=== PATIENT | female | born 1930 | race Caucasian/White ===

== ENCOUNTER 2016-11-04 10:02 | Emergency (ER) | payer OTHER, MEDICARE ==
[~2016-11-04] VITALS: Ht 157.5 cm; Wt 71.0 kg
[~2016-11-04 10:02] MED LIST: ASPI81TA82 PO; CELE200 PO; COQ1150C2 PO; FELO10TA PO; FORACAP INH; HYZA100T4 PO; METO25 PO; PROT40TA PO; RALO1TAB13 PO; VITA-13 PO; ZOCO40TA PO
[2016-11-04 10:12] VITALS: BP 160/86; PULSE 66; RESP 18; TEMP 98.3; O2SAT 94
[2016-11-04] MEDS ORDERED: SODIUM CHLORIDE 0.9% FLUSH 5 ML FLUSH IVF PRN (11:15)
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
[2016-11-04 11:50] LABS: AUTOMATED NEUTROPHIL # 3.8 TH/MM3 (1.8-7.7); BASOPHIL # 0.1 TH/MM3 (0-0.2); EOSINOPHIL # 0.2 TH/MM3 (0-0.4); EOSINOPHIL % 3.7 % (0.0-4.0); HEMATOCRIT 38.2 % (35.0-46.0); HEMO FLAGS DIFF FINAL; LYMPH % 27.9 % (9.0-44.0); LYMPHOCYTE # 1.9 TH/MM3 (1.0-4.8); MEAN CELL VOLUME 79.4 FL (80.0-100.0); MEAN CORPUSCULAR HEMOGLOBIN 26.6 PG (27.0-34.0); MEAN CORPUSCULAR HGB CONC 33.5 % (32.0-36.0); MONO % 9.3 % (0.0-8.0); NEUT % 58.1 % (16.0-70.0); PLATELET COUNT 259 TH/MM3 (150-450); RED BLOOD COUNT 4.81 MIL/MM3 (4.00-5.30); RED CELL DISTRIBUTION WIDTH 12.4 % (11.6-17.2); WHITE BLOOD COUNT 6.6 TH/MM3 (4.0-11.0)
[2016-11-04 11:52] LABS: BLOOD, URINE NEG (NEG); GLUCOSE,URINE NEG (NEG); KETONE, URINE NEG (NEG); NITRITE,URINE NEG (NEG); PH, URINE 5.5 (5.0-8.5)
[2016-11-04] MEDS ORDERED: ASPI-119 (11:53)
[2016-11-04] MEDS ORDERED: LOSA100T3 PO (11:53)
[2016-11-04] MEDS ORDERED: RANI150T PO (11:53)
[2016-11-04] MEDS ORDERED: CALC200S NASAL (11:53)
[2016-11-04] MEDS ORDERED: MULT-135 PO (11:53)
[2016-11-04] MEDS ORDERED: D31000CA (11:53)
[2016-11-04] MEDS ORDERED: CELE1CAP8 PO (11:53)
[2016-11-04] MEDS ORDERED: TRIA37.5 PO (11:53)
[2016-11-04] MEDS ORDERED: PANT40TA3 PO (11:53)
[2016-11-04] MEDS ORDERED: METO25TA3 PO (11:53)
[2016-11-04] MEDS ORDERED: SIMV10TA PO (11:53)
[2016-11-04] MEDS ORDERED: FELO10TA PO (11:53)
[2016-11-04] MEDS ORDERED: [UNRECOGNIZED DRUG - CODE] (11:53)
[2016-11-04 11:58] LABS: METHOD OF COLLECTION CLEAN CATCH; URINE COLOR YELLOW (YELLW/STRAW)
[2016-11-04 11:59] LABS: CHLORIDE 95 MEQ/L (98-107); POTASSIUM 4.5 MEQ/L (3.5-5.1); SODIUM (NA) 131 MEQ/L (136-145)
[2016-11-04 11:59] LABS: COMMENT (UR) CULT NOT INDICATED; CULTURE IF INDICATED CULT NOT INDICATED; SQUAMOUS EPITHELIAL CELL URINE 0-5 /hpf (0-5); WBC, URINE 0-2 /hpf (0-5)
[2016-11-04 12:03] LABS: ANION GAP 12 MEQ/L (5-15); APTT (PATIENT) 27.3 SEC (24.3-30.1); BICARBONATE 24.3 MEQ/L (21.0-32.0); BLOOD UREA NITROGEN 33 MG/DL (7-18); PROTHROMBIN TIME - PATIENT 10.6 SEC (9.8-11.6)
[2016-11-04 12:06] LABS: ALT (GPT) 25 U/L (10-53); AST (GOT) 5 U/L (15-37); GLOMERULAR FILTRATION RATE 18 ML/MIN (>89)
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
[2016-11-04 12:07] LABS: TOTAL BILIRUBIN ADULT 0.5 MG/DL (0.2-1.0)
[2016-11-04 12:09] LABS: ALKALINE PHOSPHATASE 67 U/L (45-117)
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
[2016-11-04 13:25] VITALS: BP 128/62; PULSE 80; RESP 16; O2SAT 94
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
[2016-11-04] MEDS ORDERED: CYCL1TAB29 PO (14:15)
--- NOTE | 2016-11-05 13:44 | EKG ---
Date Performed: 11/04/2016 Time Performed: 11:17:50 PTAGE: 86 years EKG: Normal Sinus rhythm Minor nonspecific intraventricular conduction delay which is new from the prior tracing. Abnormal EC G PREVIOUS TRACING : 11/16/1995 09.34 DOCTOR: Sanford Yang Interpretating Date/Time 11/05/2016 13:44:10
== END 2016-11-04 14:30 | disposition home or self-care (01) ==
LOC: PHED 10:02
DX: M54.5 Low back pain (principal); R79.89 Other specified abnormal findings of blood chemistry; R94.31 Abnormal electrocardiogram [ECG] [EKG]; M54.2 Cervicalgia; I10 Essential (primary) hypertension; J44.9 Chronic obstructive pulmonary disease, unspecified; E78.00 Pure hypercholesterolemia, unspecified
CPT/HCPCS: 70450; 71020; 71250; 72125; 72128; 72131; 74176; 80053; 81001; 83690; 84484; 85025; 85610; 85730; 93005